=== PATIENT | female | born 1935 | race Caucasian/White ===

== ENCOUNTER 2019-10-13 10:53 | Emergency (ER) | payer OTHER, MEDICAID ==
[~2019-10-13] VITALS: Ht 154.9 cm; Wt 72.6 kg
[2019-10-13 10:54] VITALS: Ht 154.9 cm; Wt 72.6 kg
[2019-10-13 12:33] LABS: BASOPHIL % 0.3 % (0-2); PLATELET COUNT 267 x10^3mcL (130-400); RED CELL DISTRIBUTION WIDTH 13.9 % (11.5-14.5)
[2019-10-13 12:48] LABS: CALCIUM 9.1 mg/dL (8.5-10.1); CARBON DIOXIDE 24.6 mmol/L (21-32); CHLORIDE SERUM 107 mmol/L (98-107); CREATININE SERUM 1.2 mg/dL (0.6-1.0); GLUCOSE SERUM 112 mg/dL (74-106); SODIUM SERUM 139 mmol/L (136-145)
[2019-10-13 12:52] LABS: ALBUMIN 3.5 g/dL (3.4-5.0); ALKALINE PHOSPHATASE 76 U/L (46-116); ALT/SGPT 22 U/L (14-59); AST/SGOT 18 U/L (15-37); BILIRUBIN TOTAL 0.6 mg/dL (0.20-1.00); TOTAL PROTEIN, SERUM 7.4 g/dL (6.4-8.2)
[2019-10-13 17:25] VITALS: BP 117/58
== END 2019-10-13 17:25 | disposition home or self-care (01) ==
LOC: ED 10:53
PROVIDERS: Student in an Organized Health Care Education/Training Program
DX: M62.838 Other muscle spasm (principal); R51 Headache; I10 Essential (primary) hypertension; E03.9 Hypothyroidism, unspecified; E78.00 Pure hypercholesterolemia, unspecified; Z95.1 Presence of aortocoronary bypass graft; Z98.890 Other specified postprocedural states
CPT/HCPCS: J2270; J2405; Q9967